=== PATIENT | female | born 1975 | race Caucasian/White ===

== ENCOUNTER 2017-07-25 10:13 | Emergency (ER) | payer MEDICARE | END 2017-07-25 13:30 | disposition home or self-care (01) | LOC: D.ER 10:13 | DX: F07.81 Postconcussional syndrome (principal); S40.021A Contusion of right upper arm, initial encounter; Y04.2XXA Assault by strike against or bumped into by another person, initial encounter; Y93.89 Activity, other specified; Y92.89 Other specified places as the place of occurrence of the external cause; M25.50 Pain in unspecified joint ==

== ENCOUNTER 2017-11-24 13:55 | Emergency (ER) | payer MEDICARE ==
[2017-11-24 15:48] LABS: BASOPHILS 0.3 % (0-2); EOSINOPHILS 0.4 % (0-7); HEMATOCRIT 44.3 % (36.0-48.0); HEMOGLOBIN 14.8 g/dL (12-16); IMMATURE GRANULOCYTES 0.3 % (0-5); LYMPHOCYTES 28.5 % (15-50); MCH 31.5 pg (26.0-34.0); MCHC 33.4 g/dL (31.0-37.0); MCV 94.3 fL (80.0-100.0); MEAN PLATELET VOLUME 9.8 fL (7.4-10.4); MONOCYTES 5.7 % (2-11); NEUTROPHILS 64.8 % (40-80); PLATELET COUNT 251 10x3/uL (130-400); RDW 13.6 % (11.5-14.5); WBC 11.6 10x3/uL (4.8-10.8)
[2017-11-24 16:12] LABS: ANION GAP 11.5 mmol/L (8-16); CALCIUM 9.6 mg/dL (8.5-10.1); CARBON DIOXIDE 30.6 mmol/L (21.0-32.0); CREATININE - SERUM 0.9 mg/dL (0.6-1.3); POTASSIUM - SERUM 4.1 mmol/L (3.5-5.1); T4 THYROXIN - FREE 0.7 ng/dL (0.76-1.46); THYROID STIMULATING HORMONE 38.75 uIU/mL (0.36-3.74)
== END 2017-11-24 17:03 | disposition home or self-care (01) ==
LOC: D.ER 13:55
PROVIDERS: Family Medicine
DX: L30.9 Dermatitis, unspecified (principal); E03.9 Hypothyroidism, unspecified

== ENCOUNTER 2017-12-01 12:24 | Emergency (ER) | payer MEDICARE | END 2017-12-01 14:00 | disposition home or self-care (01) | LOC: D.ER 12:24 | DX: R50.9 Fever, unspecified (principal); J11.1 Influenza due to unidentified influenza virus with other respiratory manifestations; J20.9 Acute bronchitis, unspecified; H66.93 Otitis media, unspecified, bilateral ==

== ENCOUNTER → 2018-11-20 14:21 | Outpatient (CLI) | payer MEDICARE | END | disposition home or self-care (01) | LOC: D.MRI 14:21 | DX: M25.562 Pain in left knee (principal) ==

== ENCOUNTER → 2018-12-11 08:25 | Outpatient (CLI) | payer MEDICARE | END | disposition home or self-care (01) | LOC: D.MRI 08:25 | DX: M54.5 Low back pain (principal) ==

== ENCOUNTER 2019-07-13 17:28 | Observation (INO) | payer MEDICARE, MEDICAID ==
[~2019-07-13] VITALS: Ht 162.6 cm; Wt 136.4 kg
--- NOTE | ~2019-07-13 | HEMODYNAMI ---
PATIENT:JESSY KU MEDICAL RECORD: [id number] : 73 LOCATION:[facility] D.2116 [facility]# [id number] ADMISSION DATE: 07/13/19 Generatedon:07/14/201912:35 Patient name: JESSY KU Patient #: [id number] SSN: [id number] : 1975 Date of study: 07/14/2019 Page: Of Hemodynamic Procedure Report Patient Data Patient Demographics Procedure consent was obtained First Name: JESSY Gender: Female Last Name: KINGS : 1975 [facility] Initial: E Age: 44 year(s) Patient #: [id number] Race: SSN: [id number] Additional ID: [id number] Contact details Address: [address] [place] [address] State: [place] City: [place] Zip code: [address] Past Medical History Allergies Allergen Reaction Date Comments Reported Other allergy 07/14/2019 PCN, ASA Admission Admission Data Admission Date: 07/13/2019 Admission Time: 19:45 Room #: D.2116 Insurance Payor: Medicare [facility] #: [id number] Height (in.): 63.78 BSA: 2.32 (m2) Height (cm.): 162 BMI: 51.82 (kg/m2) Weight (lbs.): 299.83 Weight (kg.): 136 Lab Results Lab Result Date: 07/14/2019 Lab Result Time: 0:00 Biochemistry Name Units Result Min Max BUN mg/dl 12 --(-*--)-- 7 18 Creatinine mg/dl 0.8 --(-*--)-- 0.6 1.3 eGFR ml/min 82.33964 *-(----)-- 90 120 NONAFRICAN CBC Name Units Result Min Max Hematocrit % 37.7 *-(----)-- 42 54 Hemoglobin g/dl 12.8 -*(----)-- 13.5 17.5 Procedure Procedure Types Cath Procedure Diagnostic Procedure [facility] w/Coronaries Procedure Description Procedure Date Procedure Date: 07/14/2019 Procedure Start Time: 12:24 Procedure End Time: 12:34 Procedure Staff Name Function Richard Ge MD Performing Physician Doris Nava RT Monitor Jessy Escobedo RT Scrub Andrea Gusman RT Scrub Nieves Mims RN Nurse Procedure Data Cath Procedure Fluoroscopy Diagnostic fluoroscopy Total fluoroscopy Time: 1.3 time: 1.3 min min Diagnostic fluoroscopy Total fluoroscopy dose: 370 dose: 370 mGy mGy Contrast Material Contrast Material Type Amount (ml) Isovue 300 44 Entry Location Entry Primary Successful Side Size Upsize Upsize Entry Closure Succes sful Closure Location (Fr) 1 (Fr) 2 (Fr) Remarks Device Remarks Femoral Right 5 Fr Exoseal artery Estimated blood loss: 5 ml Diagnostic catheters Device Type Used For End Catheter Placement MULTIPACK Pigtail 5 Fr Procedure catheter MULTIPACK JL 4.0 5Fr Procedure catheter MULTIPACK 3DRC 5Fr Procedure catheter Procedure Complications No complications Procedure Medications Medication Administration Route Dosage Oxygen etCO2 Nasal cannula 2 l/min Lidocaine 2% added to field 20 Heparin Flush Bag added to field 2 bags (1000units/500ml NS) 0.9% NaCl I.V. 100 ml/hr Versed I.V. 2 mg Fentanyl I.V. 100 mcg Versed I.V. 2 mg Fentanyl I.V. 100 mcg Hemodynamics Rest BSA: 2.32 (m2) HGB: 12.8 (g/dl) O2 Consumption: Estimated: 229.81 (ml/min) O2 Co nsumption indexed: Estimated:99.06 (ml/min/m) Heart Rate: 68 (bpm) Snapshots Pre Cath Intra NCS Post Cath Vital Signs Time Heart Resp SPO2 etCO2 NIBP (mmHg) Rhythm Pain Sedation Rate (ipm) (%) (mmHg) Status Level (bpm) 12:20:41 71 17 98 31.2 134/86(105) NSR 0 (11) 10(A) , No pain 12:25:20 68 4 96 35 71/59(67) NSR 0 (11) 10(A) , No pain 12:30:19 75 18 97 27.5 Measuring NSR 0 (11) 10(A) , No pain 12:33:58 72 12 96 33.5 129/82(92) NSR 0 (11) 10(A) , No pain Medications Time Medication Route Dose Verified Delivered Reason Notes Eff ectiveness by by 12:22:31 Oxygen etCO2 2 Richard Buffie used for Nasal l/min Joo Mims RN procedure cannula 12:22:37 Lidocaine 2% added 20ml Richard Richard for local to vial Joo Ge MD anesthetic field 12:22:43 Heparin Flush added 2 Richard Richard used for Bag to bags Joo Ge MD procedure (1000units/500ml field NS) 12:22:51 0.9% NaCl I.V. 100 Richard Buffie Per ml/hr Joo Mims RN physician 12:24:31 Versed I.V. 2 mg Richard Buffie for Joo Mims RN sedation 12:24:39 Fentanyl I.V. 100 Richard Buffie for mcg Joo Mims RN sedation 12:28:05 Versed I.V. 2 mg Richard Buffie for Joo Mims RN sedation 12:28:08 Fentanyl I.V. 100 Richard Buffie for mcg Joo Mims RN sedation Procedure Log Time Note 11:44:40 Signed procedure consent form obtained from patient. 11:44:43 Procedure Status Urgent Heart Cath (IP). 11:44:45 Time tracking: Regular hours (M-F 7:00 - 5:00) 11:44:50 Plan of Care:Hemodynamics will remain stable., Cardiac rhythm will remain stable., Comfort level will be maintained., Respiratory function will remain adequate., Patient/ family verbilizes understanding of procedure., Procedure tolerated without complication., Recovers from procedure without complications.. 11:45:14 Is patient on blood thinner?Yes 11:45:16 ACC The patient was administered the following blood thiners within the last 24 hours: ACCPlavix 11:45:29 GIVEN 600MG PLAVIX YESTERDAY 11:47:33 Lab Result : BUN 12 mg/dl 11:47:33 Lab Result : Creatinine 0.8 mg/dl 11:47:33 Lab Result : eGFR NONAFRICAN 82.31874 ml/min 11:47:33 Lab Result : Hemoglobin 12.8 g/dl 11:47:33 Lab Result : Hematocrit 37.7 % 11:49:18 Patient Weight : 299.83 lbs 11:49:23 Patient Height : 63.78 inches 11:49:57 Insurance Payor : Medicare 11:50:08 Andrea Gusman RT(R) sent for patient. Start room use. 11:52:32 Patient allergic to Other allergyPCN, ASA 12:10:06 Patient received from Med II to CCL 1 Alert and oriented. Tansferred to table in Supine position. 12:10:07 Warm blankets applied, and mj hugger turned on for patient comfort. 12:10:08 Correct patient and procedure confirmed by team. 12:10:08 ECG and BP/O2 sat monitors applied to patient. 12:13:03 H&P Date Dictated: 07/14/2019 Within 30 days and on chart., H&P Addendum completed by physician on day of procedure. (MUST COMPLETE FOR ALL OUTPATIENTS). 12:13:04 Pre-procedure instructions explained to patient. 12:13:05 Pre-op teaching completed and patient verbalized understanding. 12:13:22 Patient diabetic? No. 12:13:24 Previous problem with sedation/anesthesia? No ? 12:13:25 Snore? Yes 12:13:26 Sleep apnea? Yes 12:13:27 Deviated septum? No 12:13:28 Opens mouth fully? Yes 12:13:29 Sticks out tongue? Yes 12:13:31 Airway obstruction? No ? 12:13:37 Dentures? Yes OUT 12:18:55 Vital chart was started 12:18:56 Baseline sample Acquired. 12:19:00 Rhythm: sinus rhythm 12:19:01 Full Disclosure recording started 12:19:54 Lab results completed and on chart. 12:19:58 Right groin area was prepped with chlora-prep and draped in sterile fashion 12:19:59 Alarms reviewed by R. N. 12:19:59 Sharps counted by scrub and verified by R.N. 12:20:04 Pre procedure: right dorsailis pedis pulse 1+ Palpable, but thready & weak; easily obliterated 12:20:11 IV patent on arrival in left hand with 0.9% NaCl at KVO. 12:20:14 Use device set Femoral Dx 12:20:15 ACIST Syringe (53706) opened to sterile field. 12:20:16 Bag Decanter (2002S) opened to sterile field. 12:20:17 ACIST Hand Control (78495) opened to sterile field. 12:20:17 ACIST Manifold (21806) opened to sterile field. 12:20:18 Tegaderm 4 x 4 (1626W) opened to sterile field. 12:20:20 Medline Cath Pack ([id number]) opened to sterile field. 12:20:20 DIAGNOSTIC Multipack 5Fr catheter set (NP7472) opened to sterile field. 12:20:21 SHEATH 5FR Melrose (EKK466) opened to sterile field. 12:20:22 EMERALD Guide Wire (879-228) opened to sterile field. 12:22:31 Oxygen 2 l/min etCO2 Nasal cannula was administered by Nieves Mims RN; used for procedure; 12:22:37 Lidocaine 2% 20ml vial added to field was administered by Richard Ge MD; for local anesthetic; 12:22:43 Heparin Flush Bag (1000units/500ml NS) 2 bags added to field was administered by Richard Ge MD; used for procedure; 12:22:51 0.9% NaCl 100 ml/hr I.V. was administered by Nieves Mims RN; Per physician; 12:23:03 --------ALL STOP TIME OUT------ 12:23:03 Final Timeout: patient, procedure, and site verified with staff and physician. All members of the team are in agreement. 12:23:05 Right groin site verified by team. 12:23:08 Fire Safety Assessment: A--An alcohol-based skin anteseptic being used preoperatively., C--Open oxygen or nitrous oxide is being used., D--An ESU, laser, or fiber-optic light is being used. 12:23:10 Physical assessment completed. ASA score P 2 - A patient with mild systemic disease as per Richard Ge MD. 12:23:15 2) 60-89 Mildly reduced kidney function, and other findings (as for stage 1) point to kidney disease. 12:23:18 Maximum allowable contrast dose (3.7 X eGFR X 0.75)215 ml. 12:23:21 Sedation plan: IV Moderate Sedation Medication:Versed, Fentanyl 12:24:31 Versed 2 mg I.V. was administered by Nieves Mims RN; for sedation; 12:24:39 Fentanyl 100 mcg I.V. was administered by Nieves Mims RN; for sedation; 12::40 Procedure started. 12::47 Local anesthetic to right femoral artery with Lidocaine 2% by Richard Ge MD.INITIAL ACCESS ONLY 12::55 A 5 Fr sheath was inserted into the Right Femoral artery 12:: Zero performed for pressure channel P1 12:: A MULTIPACK Pigtail 5 Fr catheter was advanced over the wire and used for Procedure. 12::37 LV gram done using GUERRERO 12:: Injector settings: Ml/sec: 10, Volume: 20, 12::57 EF : 40 % 12::02 Catheter removed. 12::15 A MULTIPACK JL 4.0 5Fr catheter was advanced over the wire and used for Procedure. 12::05 Versed 2 mg I.V. was administered by Nieves Mims RN; for sedation; 12::08 Fentanyl 100 mcg I.V. was administered by Nieves Mims RN; for sedation; 12::18 LCA angiography performed. 12:: Catheter removed. 12::25 A MULTIPACK 3DRC 5Fr catheter was advanced over the wire and used for Procedure. 12:29:24 RCA angiography performed. 12:: Catheter removed. 12:30:11 EXOSEAL 5Fr (EX500) opened to sterile field. 12:30:22 Sheath removed intact; hemostasis achieved with Exoseal to the Right Femoral artery. 12:30:23 Procedure ended.(Physican Out) 12::44 Fluoroscopy time 01.30 minutes. 12::49 Fluoroscopy dose: 370 mGy 12::49 Flurop Dose total: 370 12::57 Dose Area Product 75429 mGy/cm. 12:31:00 Contrast amount:Isovue 300 44ml. 12:31:04 Maximum allowable dose exceeded? No. 12::05 Sharps counted by scrub and verified by R.N. ::08 Post-op/insertion site Right Femoral artery dressed using a 4 x 4 and Tegaderm. 12:31:10 Post-procedure physical assessment completed. ASA score P 2 - A patient with mild systemic disease as per Richard Ge MD. 12:31:13 Post procedure rhythm: sinus rhythm ::18 Estimated blood loss: 5 ml 12:31:20 Post procedure instruction explained to patient.Patient verbalizes understanding. 12:31:20 Patient needs reinforcement of post procedure teaching. 12:31:46 Procedure and supply charges have been captured, reviewed, submitted and are correct. 12:31:51 Procedure Complication : No complications 12:34:30 Vital chart was stopped 12:34:30 See physician's report for complete and final results. 12:34:33 Report given to [facility]. 12:34:36 Patient transfered to [facility] with Bed. 12:34:37 Procedure ended. 12:34:37 Full Disclosure recording stopped 12:34:41 End room use (Document Last) Device Usage Item Name Manufacture Quantity Catalog Hospital Part Current Minimal L ot# / Number Charge Number Stock Stock Serial# Code ACIST Acist 1 30496 159156 904525 424136 20 Syringe Medical (95915) Systems Inc Bag Microtek 1 2001S 772272 20362 872175 5 Decanter Medical Inc. () ACIST Hand Acist 1 95093 178221 564023 157674 5 Control Medical (18933) Systems Inc ACIST Acist 1 67890 882468 768865 097296 5 Manifold Medical (11652) Systems Inc Tegaderm 4 3M 1 1626W 006070 229741 069364 5 x 4 (1626W) Medline Medline 1 [id number] 025714 90618 368317 5 Cath Pack ([id number]) DIAGNOSTIC Cardinal 1 XH8471 442717 05822 511014 30 Multipack Health 5Fr catheter set (QQ9165) SHEATH 5FR Terumo 1 IHB862 349758 829496 603464 5 Melrose (QWX839) EMERALD Cardinal 1 502-455 745718 320254 699586 5 Guide Wire Health (502455) MULTIPACK Cardinal 1 060654 5 Pigtail 5 Health Fr catheter MULTIPACK Cardinal 1 862881 5 JL 4.0 5Fr Health catheter MULTIPACK Cardinal 1 630319 5 3DRC 5Fr Health catheter EXOSEAL 5Fr Cardinal 1 EX500 365542 686295 209745 10 (EX500) Health Signature Audit [place] Stage Time Signature Unsigned Intra-Procedure 07/14/2019 Doris Nava 12:35:15 PM RT(R) Signatures Performing Physician : Signature : Richard Tauth MD Date : Time : Monitor : Doris Nava Signature : RT Date : Time : Nurse : Buffie Mims RN Signature : Date : Time : [address] [place] [address]
[2019-07-13 18:07] LABS: APPEARANCE CLEAR (CLEAR); BILIRUBIN NEGATIVE (NEGATIVE); COLOR YELLOW (YELLOW); GLUCOSE NEGATIVE (NEGATIVE); KETONE NEGATIVE (NEGATIVE); NITRITE NEGATIVE (NEGATIVE); PROTEIN NEGATIVE (NEGATIVE); UROBILINOGEN NORMAL (NORMAL)
[2019-07-13 18:23] LABS: BASOPHILS 0.4 % (0-2); EOSINOPHILS 1.8 % (0-7); HEMATOCRIT 36.1 % (36.0-48.0); HEMOGLOBIN 12.4 g/dL (12-16); IMMATURE GRANULOCYTES 0.3 % (0-5); LYMPHOCYTES 33.3 % (15-50); MCH 29.8 pg (26.0-34.0); MCHC 34.3 g/dL (31.0-37.0); MCV 86.8 fL (80.0-100.0); MEAN PLATELET VOLUME 8.6 fL (7.4-10.4); NEUTROPHILS 56.2 % (40-80); PLATELET COUNT 260 10x3/uL (130-400); RBC 4.16 10x6/uL (4.00-5.40); RDW 13.4 % (11.5-14.5); WBC 11.1 10x3/uL (4.8-10.8)
--- NOTE | 2019-07-13 18:35 | NUR ---
UP IN ROOM TALKING ON PHONE.
[2019-07-13 18:42] LABS: ALBUMIN 3.1 g/dL (3.4-5.0); ALKALINE PHOSPHATASE 87 U/L (46-116); ALT (SGPT) 28 U/L (10-68); BILIRUBIN - TOTAL 0.22 mg/dL (0.2-1.3); CALC OSMOLALITY 265 mosm/kg (275-300); CALCIUM 8.9 mg/dL (8.5-10.1); CARBON DIOXIDE 27.3 mmol/L (21.0-32.0); CHLORIDE - SERUM 100 mmol/L (98-107); CREATININE - SERUM 0.8 mg/dL (0.6-1.3); GLUCOSE 117 mg/dL (74-106); POTASSIUM - SERUM 3.9 mmol/L (3.5-5.1); PROTEIN - SERUM 6.8 g/dL (6.4-8.2); SODIUM 133 mmol/L (136-145); UREA NITROGEN 9 mg/dL (7-18); eGFR NON AFRICAN AMERICAN 82 mL/min (90-120)
[2019-07-13 18:57] LABS: CKMB 1.5 U/L (0.0-3.6); CREATINE KINASE 89 UL (21-215); PRO BNP 805 pg/mL (0-125)
--- NOTE | 2019-07-13 19:08 | NUR ---
PT AMBULATED TO RESTROOM WITH A STEADY GAIT. NO S/S OF ACUTE DISTRESS NOTED AT THIS TIME.
[2019-07-13 19:11] LABS: TROPONIN-I 0.626 ng/mL (0.000-0.060)
--- NOTE | 2019-07-13 19:32 | NUR ---
RN ADMINISTERED 1 NTG AT THIS TIME. PAIN RATED 9/10.
--- NOTE | 2019-07-13 19:45 | NUR ---
PT REPORTS DECREASE IN PAIN TO 7/10.
--- NOTE | 2019-07-13 19:52 | NUR ---
RN ADMINISTERED 2ND NTG AT THIS TIME.
--- NOTE | 2019-07-13 20:00 | NUR ---
PT FAMILY AT BEDSIDE.
--- NOTE | 2019-07-13 20:42 | NUR ---
PT AMBULATED TO RESTROOM WITH A STEADY GAIT.
--- NOTE | 2019-07-13 21:30 | NUR ---
ADMIT TO ROOM 2115 FROM ER VIA WHEELCHAIR. ALERT/ORIENTED AND AMBULATORY. ADMISSION ASSESSMENT AND HISTORY COMPLETED. HOME MEDS REVIEWED. PT UNSURE WHAT SHE TAKES, BUT AGREES TO WHAT MEDS ARE LISTED TO HAVING BEEN RECENTLY ORDERED AT [facility]. IVF NS @ 75ML/HR INFUSING TO LEFT HAND. SR PER TELEMETRY. PT TEACHING ON NPO AFTER MIDNIGHT UNTIL SEEN BY VEHICLE ASSEMBLER IN AM. PT DOES NOT WISH TO USE ANY TYPE OF PAIN MEDS DUE TO BEING A RECOVERING ADDICT AND CURRENTLY INPATIENT AT [facility]. PLAN OF CARE INITIATED. SANDWICH TRAY AND DRINK DELIVERED.
[2019-07-13 22:17] LABS: UDS - AMPHET NEGATIVE QUAL (NEGATIVE); UDS - BARB NEGATIVE QUAL (NEGATIVE); UDS - BENZO NEGATIVE QUAL (NEGATIVE); UDS - COCAINE NEGATIVE QUAL (NEGATIVE); UDS - OPIATE NEGATIVE QUAL (NEGATIVE); UDS - PCP NEGATIVE QUAL (NEGATIVE); UDS - THC NEGATIVE QUAL (NEGATIVE)
[2019-07-13] MEDS ORDERED: PROPRANOLOL HCL20 MG PO (22:51)
[2019-07-13] MEDS ORDERED: TRILEPTAL300 MG PO (22:55)
[2019-07-13] MEDS ORDERED: ZOLOFT50 MG PO (22:56)
[2019-07-13] MEDS ORDERED: REMERON30 MG PO (22:56)
[2019-07-13] MEDS ORDERED: COZAAR50 MG PO (22:57)
[2019-07-13] MEDS ORDERED: LEVOTHYROXINE150 MCG PO (22:57)
[2019-07-13 23:21] VITALS: BP 116/71; BMI 51.6
[2019-07-14] VITALS: BP 116/71
--- NOTE | 2019-07-14 00:22 | NUR ---
DUE TO PT'S REFERENCE TO SUICIDAL IDEATION IN THE PAST, SHE IS NOW BEING ASSESSED BY PSYCH NURSE. CPOC.
--- NOTE | 2019-07-14 00:29 | NUR ---
PATIENT ADMITTED TO ROOM 2116 FOR CHEST PAIN. PATIENT HAS A HISTORY OF DEPRESSION WHICH SHE IS BEING TREATED FOR. SHE IS NOT CURRENTLY SUICIDAL AND HAS NOT BEEN SUICIDAL IN THE LAST 3 MONTHS. SUICIDE PREVENTION RESOURCE SHEET GIVEN TO PATIENT.
[2019-07-14 04:00] VITALS: BP 97/49
--- NOTE | 2019-07-14 04:05 | NUR ---
PT RESTING WITH NO DISTRESS. SR PER TELEMETRY. NPO UNTIL SEEN BY SECRETARY TO BOARD OF COMMISSIONERS.
[2019-07-14 05:22] LABS: BASOPHILS 0.3 % (0-2); EOSINOPHILS 1.5 % (0-7); HEMATOCRIT 37.7 % (36.0-48.0); HEMOGLOBIN 12.8 g/dL (12-16); IMMATURE GRANULOCYTES 0.3 % (0-5); LYMPHOCYTES 32.8 % (15-50); MCH 29.6 pg (26.0-34.0); MCV 87.1 fL (80.0-100.0); MEAN PLATELET VOLUME 8.7 fL (7.4-10.4); MONOCYTES 7.5 % (2-11); NEUTROPHILS 57.6 % (40-80); PLATELET COUNT 252 10x3/uL (130-400); RBC 4.33 10x6/uL (4.00-5.40); RDW 13.5 % (11.5-14.5); WBC 9.7 10x3/uL (4.8-10.8)
[2019-07-14 06:06] LABS: CALCIUM 8.8 mg/dL (8.5-10.1); CARBON DIOXIDE 26.7 mmol/L (21.0-32.0); CHLORIDE - SERUM 103 mmol/L (98-107); CREATININE - SERUM 0.8 mg/dL (0.6-1.3); GLUCOSE 98 mg/dL (74-106); POTASSIUM - SERUM 4.1 mmol/L (3.5-5.1); SODIUM 136 mmol/L (136-145); eGFR NON AFRICAN AMERICAN 82 mL/min (90-120)
[2019-07-14 06:10] LABS: CALC OSMOLALITY 271 mosm/kg (275-300); TROPONIN-I 0.604 ng/mL (0.000-0.060); UREA NITROGEN 12 mg/dL (7-18)
[2019-07-14 08:21] VITALS: Ht 162.6 cm; Wt 136.4 kg
[2019-07-14 08:33] VITALS: BP 100/47
--- NOTE | 2019-07-14 09:52 | NUR ---
CONSENTS SIGNED FOR [facility]. WILL CONT. PLAN OF CARE.
[2019-07-14 11:56] VITALS: BP 114/72
--- NOTE | 2019-07-14 12:02 | NUR ---
PRE-OPS GIVEN. TO SHIFT COORDINATOR BY BED.
--- NOTE | 2019-07-14 12:55 | NUR ---
BACK FROM ARCHITECTURE DEPARTMENT CHAIR. VS WNL. RIGHT GROIN STABLE WITHOUT BLEEDING OR HEMATOMA NOTED. WILL MONITOR.
--- NOTE | 2019-07-14 14:31 | NUR ---
BED REST UP. GROIN STABLE, IV AND TELEMTRY DCD. DC PLANS GIVEN. REPORT CALLED TO NURSE AT [facility].
--- NOTE | 2019-07-14 14:46 | NUR ---
ESCORTED TO CAR BY W/C.
--- NOTE | 2019-07-14 17:20 | MORECARE ---
CASE MANAGEMENT DISCHARGE SUMMARY PATIENT: JESSY KU UNIT: [id number] ADM DATE: 07/13/19 AGE: 44 : [birth year] SEX: F ROOM/BED: D.8846 AUTHOR: RAYMOND ENCINAS PHYSICIAN: REFERRING PHYSICIAN: MARIA DEL CARMEN BEACH MD DATE OF SERVICE: 07/14/19 Discharge Plan Patient Name: JESSY KU Facility: [facility]:[place] : 1975 Planned Disposition: Other Type of Facility Anticipated Discharge Date: 07/14/19 Discharge Date: 07/14/2019 Expected LOS: 1 Initial Reviewer: [email or web address] Initial Review Date: 07/14/2019 Generated: 07/14/19 6:20 pm DCPIA - Discharge Planning Initial Assessment Updated by [email or web address]: Alex Tran on 07/14/19 5:17 pm * Is the patient Alert and Oriented? Yes * How many steps to enter\exit or inside your home? 20 * PCP DR. LUNDY * Pharmacy [facility] ([place] [facility]) * Preadmission Environment Other * Other Environment DRUG / ALCOHOL TREATMENT FACILITY - INVOLUNTARY COMMITTMENT * Facility Name [facility]. * ADLs Independent * Equipment None * Other Equipment [facility] - PREFERRED EQUIPMENT PROVIDER * List name and contact numbers for known caregivers / representatives who currently or will assist patient after discharge: ITALO RODRIGUEZ, SIGNIFICANT OTHER, * Verbal permission to speak to the caregivers and representatives has been obtained from the patient. Yes * Community resources currently utilized None * Please name any agencies selected above. NONE * Additional services required to return to the preadmission environment? No * Can the patient safely return to the preadmission environment? Yes * Has this patient been hospitalized within the prior 30 days at any hospital? No Patient Name: JESSY KU Page [id number] at 1720 All edits/amendments must be made on the electronic document DICTATION DATE: 07/14/19 1720 INSTANTIZER OPERATOR: WESLY 07/14/19 1720 RPT#: [id number] DC DATE:07/14/19 STATUS: DIS IN [facility] [address] [place] [address] END OF REPORT
--- NOTE | 2019-07-14 17:28 | MORECARE ---
CASE MANAGEMENT DISCHARGE SUMMARY PATIENT: JESSY KU UNIT: [id number] ADM DATE: 07/13/19 AGE: 44 : [birth year] SEX: F ROOM/BED: D.7086 AUTHOR: RAYMOND ENCINAS PHYSICIAN: REFERRING PHYSICIAN: MARIA DEL CARMEN BEACH MD DATE OF SERVICE: 07/14/19 Discharge Plan Patient Name: JESSY KU Facility: [facility]:[place] : 1975 Planned Disposition: Other Type of Facility Anticipated Discharge Date: 07/14/19 Discharge Date: 07/14/2019 Expected LOS: 1 Initial Reviewer: [email or web address] Initial Review Date: 07/14/2019 Generated: 07/14/19 6:28 pm Comments DCP- Discharge Planning Updated by [email or web address]: Alex Tran on 07/14/19 4:[address] Patient Name: JESSY KU Admission Status: ER Accout number: [id number] Admission Date: 07-13-2019 : 1975 Admission Diagnosis: Attending: LEAH BEACH Current LOS: 1 Anticipated DC Date: 07-14-2019 Planned Disposition: Other Type of Facility Primary Insurance: [facility] MEDICARE SOLUTIONS PLANNED EXTERNAL PROVIDER: [facility]. INVOLUNTARY COMMITTMENT FOR DRUG / ALCOHOL TREATMENT Discharge Planning Comments: CM MET WITH PT AND HER SIGNFICANT OTHER IN ROOM TO DISCUSS DISCHARGE PLANNING AND NEEDS. JESSY KU provided verbal consent to discuss current and ongoing needs with/in the presence of: ITALO RODRIGUEZ. PT REPORTS LIVING AT HOME INDEPENDENTLY WITH HER SIGNIFICANT OTHER WHEN NOT IN [facility]. PT REPORTS HER FAMILY FILED A PETITION FOR INVOLUNTARY COMMITTMENT AND PT HAS TO RETURN TO [facility] TODAY AND HAS ANOTHER COURT HEARING NEXT WEEK. PT HAS NO MEDICAL EQUIPMENT AND NO OUTSIDE SERVICES ASSISTING IN THE HOME. CM DISCUSSED AVAILABILITY OF HOME HEALTH, REHAB SERVICES AND MEDICAL EQUIPMENT. PT DENIES DISCHARGE NEEDS, REPORTS HER SIGNIFICANT OTHER WILL PICK HER UP FOR DISCHARGE BACK TO [facility]. CM CALLED [facility], , SPOKE TO WHO CONFIRMED THAT PT CAN TRANSPORT WITH HER BOYFRIEND FOR RETURN TO TREATMENT. CM INFORMED THAT PT DID RECEIVE VERSED AND FENTENYL IN THE HOSPITAL DURING TREATMENT. [facility] DOES NOT NEED NURSE REPORT OR FAX OF MEDICAL RECORDS, PT NEEDS TO BRING DISCHARGE INFORMATION WITH HER. PT AND BEDSIDE NURSE NOTIFIED. Medical Physicist: Alex Tran DCPIA - Discharge Planning Initial Assessment Updated by [email or web address]: Alex Tran on 07/14/19 5:17 pm * Is the patient Alert and Oriented? Yes * How many steps to enter\exit or inside your home? 20 * PCP DR. LUNDY * Pharmacy [facility] ([facility]) * Preadmission Environment Other * Other Environment DRUG / ALCOHOL TREATMENT FACILITY - INVOLUNTARY COMMITTMENT * Facility Name [facility]. * ADLs Independent * Equipment None * Other Equipment [facility] - PREFERRED EQUIPMENT PROVIDER * List name and contact numbers for known caregivers / representatives who currently or will assist patient after discharge: ITALO RODRIGUEZ, SIGNIFICANT OTHER, * Verbal permission to speak to the caregivers and representatives has been obtained from the patient. Yes * Community resources currently utilized None * Please name any agencies selected above. NONE * Additional services required to return to the preadmission environment? No * Can the patient safely return to the preadmission environment? Yes * Has this patient been hospitalized within the prior 30 days at any hospital? No Last DP export: 07/14/19 4:20 p Patient Name: JESSY KU Page [id number] at 1728 All edits/amendments must be made on the electronic document DICTATION DATE: 07/14/191727 SWITCHBOARD CLERK: WESLY 07/14/191727 RPT#: [id number] DC DATE:07/14/19 STATUS: DIS IN [facility] [address] [place] [address] END OF REPORT
--- NOTE | 2019-07-15 11:10 | DS ---
PATIENT:JESSY KU :73 MEDICAL RECORD: [id number] DISCHARGE SUMMARY ADMISSION DATE: 07/13/19 DISCHARGE DATE: 07/14/19 DISCHARGE DIAGNOSES: 1. Chest pain. 2. Elevated troponin. 3. Normal cardiac catheterization. 4. Hypertension. 5. Hyperlipidemia. HISTORY OF PRESENT ILLNESS: Mrs. Ku presents with chest pain. Her troponin is mildly elevated; however, cardiac catheterization was normal with no coronary artery disease. Discharged home. Follow up with her primary care physician. TRANSINT:[id number] Voice Confirmation ID: [id number] DOCUMENT ID: [id number] MARIA DEL CARMEN BEACH MD at 1110 CC: [id number] DICTATION DATE: 07/14/19 1237 DITCH INSPECTOR: 07/15/19 0024 DIS IN 07/14/19 [facility] [address] [place] [address]
--- NOTE | 2019-07-15 11:10 | HP ---
PATIENT: JESSY KU MEDICAL RECORD: [id number] ACCOUNT: [id number] LOCATION:[address] : [birth year] ADMISSION DATE: 07/13/19 PCP: SUNI LUNDY MD HISTORY AND PHYSICAL EXAMINATION DIAGNOSES: 1. Non-Q-wave myocardial infarction. 2. Coronary artery disease. 3. Shortness of breath, dyspnea on exertion. 4. Hypertension. 5. Hyperlipidemia. 6. Hypothyroidism, on replacement. HISTORY OF PRESENT ILLNESS: Mrs. Ku presents with 24 hours of increasing chest discomfort. She has a history of a myocardial infarction in the past. She was pain free until yesterday when she began having severe chest discomfort. Her troponin is positive for non-Q-wave myocardial infarction. She continues to have episodes of chest discomfort this morning. PHYSICAL EXAMINATION: CONSTITUTIONAL/GENERAL APPEARANCE: Well nourished, well developed, appears stated age. EYES: Lids and conjunctivae noninjected. No discharge. No pallor. ENT: Lips within normal limit. No cyanosis. No pallor. NECK: Carotid arteries, bilateral normal upstroke. No bruits. No thrills. No jugular venous pressure or distention. CERVICAL LYMPH NODES: Nontender. Nonenlarged. THYROID: Not enlarged. No nodules. CARDIOVASCULAR: Precordial exam, nondisplaced. No heaves or pericardial thrills. Rate and rhythm, regular. Heart sounds, normal S1, normal S2. No S3, no gallop, no rub. Systolic murmur, not heard. Diastolic murmur, not heard. RESPIRATORY: Respiratory effort, unlabored. Normal curvature. No thoracic deformity. No chest wall tenderness. Percussion, resonant. Auscultation, clear. No wheezes, no rales, no rhonchi. ABDOMEN: Soft, nondistended, nontender. No abdominal pain, no vomiting and normal appetite. MUSCULOSKELETAL: No joint tenderness, normal gait, normal tone. SKIN: Warm and dry. OVERALL IMPRESSION: Non-Q-wave myocardial infarction with continued chest discomfort, dyspnea on exertion, shortness of breath in a patient with a past history of coronary artery disease with hypertension, hyperlipidemia. No doubt she has hemodynamically significant coronary artery disease. We will proceed with coronary angiography. Further care depends upon findings of the angiography. TRANSINT:[id number] Voice Confirmation ID: [id number] DOCUMENT ID: [id number] HISTORY AND PHYSICAL [id number] JESSY KU JEFFREY MD at 1110 CC: [id number] DICTATION DATE: 07/14/19821 SECOND HAND: 07/14/19 08 DIS IN 07/14/19 [facility] [address] [place] [address]
--- NOTE | 2019-07-15 11:10 | EC ---
PATIENT:JESSY KU DATE OF SERVICE: 07/13/19 SEX: F MEDICAL RECORD: [id number] DATE OF : [birth year] LOCATION:D. D.211 AGE OF PATIENT: 44 ADMISSION DATE: 07/13/19 REFERRING PHYSICIAN: INTERPRETING PHYSICIAN: MARIA DEL CARMEN GE MD ECHOCARDIOGRAM REPORT ECHO CHARGES 4 ECHO COMPLETE Date: 07/14/19 CLINICAL DIAGNOSIS: NH ECHOCARDIOGRAPHIC MEASUREMENTS (adult normal given) AC root (d.<3.7cm) 3.2 cm LV Septum d (<1.2 cm> 1.1 cm Valve Excursion 1.9 cm LV Septum (systole) 1.4 cm Left Atria (s.<4.0cm> 4.0 cm LVPW d(<1.2cm) 1.1 cm RV (d.<2.3cm) 2.5 cm LVPW (sytole) 1.3 cm LV diastole(<5.6CM) 7.2 cm MV E-F(>70mm/sec) cm LV systole 5.9 cm LVOT Diameter 1.9 cm MV exc.(>10mm) cm Est.ejection fraction (50-75%) % DOPPLER: LVIT cm/sec A 46.0 cm/sec E 103 cm/sec LA cm/sec RVSP 25.0 mmHg LVOT 105 cm/sec AOP1/2T m/s Asc. Ao 121 cm/sec RVOT 46.0 cm/sec RA cm/sec PA 100 cm/sec AV Gradient Peak 5.8 mmHg AV Mean 2.6 mmHg AV Area 3.0 cm MV Gradient Peak 4.2 mmHg MV Mean 1.3 mmHg MV Area cm COMMENTS: Operator Automated Process: Emmie ANAYAOE Single Needle Operator: 1 Dr. Ge TAPE# PACS Pericardial Effusion N DATE OF SERVICE: 07/14/2019 PROCEDURE: Echocardiogram. FINDINGS: 1. Left ventricular chamber size is dilated. Left ventricular systolic function is mildly reduced at 40%. 2. Left atrium is with upper limits of normal at 4.0 cm. Right atrium and right ventricular chamber sizes are within normal limits. 3. Valvular structures have normal structure and motion. ECHOCARDIOGRAM REPORT [id number] JESSY KU 4. Doppler interrogation reveals mild mitral regurgitation, no other valvular insufficiency or stenosis. Pulmonary systolic pressure is estimated at 25 mmHg. 5. No evidence of pericardial effusion or left ventricular thrombus. TRANSINT:[id number] Voice Confirmation ID: [id number] DOCUMENT ID: [id number] MARIA DEL CARMEN GE MD at 1110 CC: [id number] DICTATION DATE: 07/14/19 1139 PLASTERING CONTRACTOR: 07/14/19 1152 DIS IN 07/14/19 [place] [id number] [place] [id number]
--- NOTE | 2019-07-15 11:10 | OP ---
PATIENT NAME: JESSY KU MEDICAL RECORD: [id number] :73 LOCATION:D.M2 D.2116 ADMISSION DATE:07/13/19 SURGEON: MARIA DEL CARMEN BEACH MD DATE OF OPERATION: 07/14/2019 PROCEDURES: 1. Left heart catheterization. 2. Selective coronary angiography. 3. Left ventriculogram. INDICATION: Chest pain, elevated troponin. PROCEDURE IN DETAIL: After informed consent was obtained and after a detailed description of risks, benefits as well as alternative therapies, the patient elected to proceed with angiogram and heart catheterization. The right femoral area was prepped and draped in normal sterile fashion. Right femoral artery was cannulated via modified Seldinger technique with placement of 5-Citizen Of [place] sheath. All catheters exchanged through this sheath. FINDINGS: Left ventriculogram was performed in standard 30 degree GUERRERO view reveals ejection fraction in the lower limits of normal up to 45% to 50%. SELECTIVE CORONARY ANGIOGRAPHY: Left main, left anterior descending, left circumflex, right coronary artery are all smooth-walled vessels with no angiographic evidence of coronary artery disease. OVERALL IMPRESSION: 1. No angiographic evidence of coronary artery disease. 2. Normal left heart pressures. 3. Preserved left heart function. Chest pain is noncardiac in etiology. Troponin is false positive, no other cardiac workup or treatment is necessary. TRANSINT:[id number] Voice Confirmation ID: [id number] DOCUMENT ID: [id number] MARIA DEL CARMEN BEACH MD at 1110 CC: [id number] DICTATION DATE: 07/14/19 1239 REDUCER: 07/14/19 1311 DIS IN 07/14/19 [place] [address]
== END 2019-07-14 14:47 | disposition home or self-care (01) ==
LOC: D.ER 17:28 → D.M2 19:45 → OBSVTIME 21:01 → D.M2 07-14 14:47
PROVIDERS: Family Medicine; ADMIT Internal Medicine Interventional Cardiology; ATTEND Internal Medicine Interventional Cardiology
PROC: B2151ZZ Fluoroscopy of Left Heart using Low Osmolar Contrast (ICD-10-PCS; 2019-07-14)
PROC: 4A023N7 Measurement of Cardiac Sampling and Pressure, Left Heart, Percutaneous Approach (ICD-10-PCS; 2019-07-14)
PROC: B2111ZZ Fluoroscopy of Multiple Coronary Arteries using Low Osmolar Contrast (ICD-10-PCS; principal; 2019-07-14 11:50)
DX: R07.89 Other chest pain (principal); I10 Essential (primary) hypertension; E78.5 Hyperlipidemia, unspecified; E03.9 Hypothyroidism, unspecified; R79.89 Other specified abnormal findings of blood chemistry

== ENCOUNTER 2020-02-17 15:59 | Observation (INO) | payer MEDICARE, MEDICAID ==
[~2020-02-17] VITALS: Ht 162.6 cm; Wt 144.5 kg
[~2020-02-17 15:59] MED LIST: COZAAR50 MG PO; LEVOTHYROXINE150 MCG PO; PROPRANOLOL HCL20 MG PO; REMERON30 MG PO; TRILEPTAL300 MG PO; ZOLOFT50 MG PO
[2020-02-17 16:19] LABS: BASOPHILS 0.4 % (0-2); EOSINOPHILS 2.1 % (0-7); HEMOGLOBIN 13.4 g/dL (12-16); IMMATURE GRANULOCYTES 0.2 % (0-5); LYMPHOCYTES 29.4 % (15-50); MCH 30.6 pg (26.0-34.0); MCHC 31.9 g/dL (31.0-37.0); MCV 95.9 fL (80.0-100.0); MEAN PLATELET VOLUME 8.9 fL (7.4-10.4); MONOCYTES 7.2 % (2-11); NEUTROPHILS 60.7 % (40-80); PLATELET COUNT 266 10x3/uL (130-400); RBC 4.38 10x6/uL (4.00-5.40); RDW 13.6 % (11.5-14.5); WBC 9.6 10x3/uL (4.8-10.8)
[2020-02-17 16:43] LABS: ANION GAP 16.4 mmol/L (8-16); CARBON DIOXIDE 22.1 mmol/L (21.0-32.0); POTASSIUM - SERUM 3.5 mmol/L (3.5-5.1)
[2020-02-17 16:43] LABS: UDS - AMPHET NEGATIVE QUAL (NEGATIVE); UDS - BARB NEGATIVE QUAL (NEGATIVE); UDS - BENZO NEGATIVE QUAL (NEGATIVE); UDS - COCAINE NEGATIVE QUAL (NEGATIVE); UDS - OPIATE NEGATIVE QUAL (NEGATIVE); UDS - PCP NEGATIVE QUAL (NEGATIVE); UDS - THC NEGATIVE QUAL (NEGATIVE)
[2020-02-17 16:48] LABS: ALBUMIN 3.9 g/dL (3.4-5.0); BILIRUBIN - TOTAL 0.38 mg/dL (0.2-1.3); MAGNESIUM - SERUM 2.2 mg/dL (1.8-2.4); PROTEIN - SERUM 7.8 g/dL (6.4-8.2)
[2020-02-17 17:00] LABS: BILIRUBIN NEGATIVE (NEGATIVE); GLUCOSE NEGATIVE (NEGATIVE); KETONE NEGATIVE (NEGATIVE); NITRITE NEGATIVE (NEGATIVE); SPECIFIC GRAVITY 1.015 (1.005-1.020); UROBILINOGEN NORMAL (NORMAL)
[2020-02-17 17:04] LABS: HCG URINE NEGATIVE (NEGATIVE)
--- NOTE | 2020-02-17 17:15 | NUR ---
SPOKE WITH POISON CONTROL REGARDING PATIENT - THEY HAVE ALSO SPOKEN WITH OUR ER PROVIDER FOR RECOMMENDATIONS.
[2020-02-17 17:26] LABS: CKMB 1.1 U/L (0.0-3.6); CREATINE KINASE 194 UL (21-215); TROPONIN-I < 0.017 ng/mL (0.000-0.060)
--- NOTE | 2020-02-17 17:28 | NUR ---
DR. SHEA NOTIFIED AND SITTER IN LINE OF SIGHT. NOTIFIED CHARGE NURSE AND ATTENDING IN REGARDS TO ASSESSMENT FINDINGS. RESOURCES GIVEN TO PT AND SAFETY PLAN INTIATED.
[2020-02-17 20:00] VITALS: BP 138/90
--- NOTE | 2020-02-17 20:30 | NUR ---
PT ASSISTED INTO ICU BED, MONITORS ON AND WORKING, VITALS STABLE, PT AWAKE ALERT ORIENTED. SITTER AT BEDSIDE. PT DENIES ANY COMPLAINT OF PAIN OR DISCOMFORT AT THIS TIME, SEE FLOW SHEET FOR FURTHER DETAILS. WILL CONTINUE TO OBSERVE.
--- NOTE | 2020-02-17 20:36 | NUR ---
spoke with the pt. the pt requested that we let someone know that she is in the hosptial, she asked if we call dash and vy. both numbers did not work. she did give her permission to give out password.
[2020-02-17 21:00] VITALS: BP 118/81; BP 123/80
[2020-02-17 22:00] VITALS: BP 118/81
[2020-02-17 23:00] VITALS: BP 116/93
--- NOTE | 2020-02-17 23:00 | NUR ---
PT LYING IN BED RESTING, MONITORS ON AND WORKING, VITALS STABLE. SITTER AT BEDSIDE, SEE FLOW SHEET FOR FURTHER DETAILS. WILL CONTINUE TO OBSERVE.
[2020-02-17 23:21] VITALS: BP 138/90; Ht 162.6 cm; Wt 144.5 kg
[2020-02-18] VITALS (15 sets, daily range): BP systolic 90–152; BP diastolic 50–95
--- NOTE | 2020-02-18 01:00 | NUR ---
PT LYING IN BED RESTING. MONITORS ON AND WORKING, VITALS STABLE. SITTER AT BEDSIDE, NO SIGNS/SYMPTOMS OF PAIN OR DISCOMFORT NOTED. WILL CONTINUE TO OBSERVE.
[2020-02-18 01:48] LABS: CREATINE KINASE 142 UL (21-215); TROPONIN-I < 0.017 ng/mL (0.000-0.060)
--- NOTE | 2020-02-18 03:00 | NUR ---
PT LYING IN BED RESTING MONITORS ON AND WORKING, VITALS STABLE, PT ALERT AND ORIENTED, DENIES ANY COMPLAINT OF PAIN OR DISCOMFORT. SEE FLOW SHEET FOR FURTHER DETAILS. WILL CONTINUE TO OBSERVE.
--- NOTE | 2020-02-18 07:15 | NUR ---
PT RESTING IN BED, VSS AND WNL. BED ALARM ON. NO SIGNS OF DISTRESS NOTED. CALL LIGHT WITHIN REACH. WILL CONT TO FOLLOW POC
[2020-02-18 07:43] LABS: BASOPHILS 0.5 % (0-2); EOSINOPHILS 3.2 % (0-7); HEMATOCRIT 38.4 % (36.0-48.0); IMMATURE GRANULOCYTES 0.3 % (0-5); LYMPHOCYTES 33.6 % (15-50); MCH 29.9 pg (26.0-34.0); MCHC 31.3 g/dL (31.0-37.0); MCV 95.8 fL (80.0-100.0); NEUTROPHILS 55.4 % (40-80); PLATELET COUNT 232 10x3/uL (130-400); RBC 4.01 10x6/uL (4.00-5.40); RDW 13.6 % (11.5-14.5); WBC 7.6 10x3/uL (4.8-10.8)
[2020-02-18 08:21] LABS: ALBUMIN 3.3 g/dL (3.4-5.0); ALKALINE PHOSPHATASE 80 U/L (30-120); ALT (SGPT) 38 U/L (10-68); BILIRUBIN - TOTAL 0.51 mg/dL (0.2-1.3); CALC OSMOLALITY 282 mosm/kg (275-300); CALCIUM 8.3 mg/dL (8.5-10.1); CARBON DIOXIDE 23.7 mmol/L (21.0-32.0); CHLORIDE - SERUM 109 mmol/L (98-107); CKMB 0.8 U/L (0.0-3.6); CREATINE KINASE 130 UL (21-215); CREATININE - SERUM 0.9 mg/dL (0.6-1.3); GLUCOSE 108 mg/dL (74-106); POTASSIUM - SERUM 3.9 mmol/L (3.5-5.1); PROTEIN - SERUM 6.3 g/dL (6.4-8.2); SODIUM 141 mmol/L (136-145); TROPONIN-I < 0.017 ng/mL (0.000-0.060); UREA NITROGEN 14 mg/dL (7-18); eGFR NON AFRICAN AMERICAN 72 mL/min (90-120)
--- NOTE | 2020-02-18 09:00 | NUR ---
PT RESTING IN BED, VSS AND WNL, NO SIGNS OF DISTRESS NOTED. BED ALARM ON. SITTER AT BEDSIDE, DENIES ANY NEEDS AT THIS TIME, WILL CONT TO FOLLOW POC
--- NOTE | 2020-02-18 10:26 | MORECARE ---
CASE MANAGEMENT DISCHARGE SUMMARY PATIENT: JESSY KU UNIT: [id number] ADM DATE: 02/17/20 AGE: 44 : [birth year] SEX: F ROOM/BED: D.2307 AUTHOR: RAYMOND ENCINAS PHYSICIAN: REFERRING PHYSICIAN: VANIA ROMERO MD DATE OF SERVICE: 02/18/20 Discharge Plan Patient Name: JESSY KU Facility: [facility]:[place] : 1975 Planned Disposition: Anticipated Discharge Date: Discharge Date: Expected LOS: Initial Reviewer: [email or web address] Initial Review Date: 02/17/2020 Generated: 02/18/20 11:26 am DCPIA - Discharge Planning Initial Assessment Updated by [email or web address]: Fahrana Yun on 02/18/20 10:23 am * Is the patient Alert and Oriented? Yes * How many steps to enter\exit or inside your home? 0/0 * PCP [place] * Pharmacy [facility] [address] * Preadmission Environment Homeless * ADLs Independent * Equipment None * List name and contact numbers for known caregivers / representatives who currently or will assist patient after discharge: unknown * Community resources currently utilized None * Additional services required to return to the preadmission environment? Yes * Can the patient safely return to the preadmission environment? Yes * Has this patient been hospitalized within the prior 30 days at any hospital? Yes Patient Name: JESSY KU Page [id number] at 1026 All edits/amendments must be made on the electronic document DICTATION DATE: 02/18/20 1026 GOLD LEAF GILDER: WESLY 02/18/20 1026 RPT#: [id number] DC DATE: STATUS: ADM IN [facility] [address] [place] [address] END OF REPORT
--- NOTE | 2020-02-18 11:00 | NUR ---
PT RESTING IN BED, SITTER AT BEDSIDE. NO SIGNS OF DISTRESS NOTED. BED ALARM ON. WILL CONT TO FOLLOW POC
[2020-02-18 13:43] LABS: CKMB 0.9 U/L (0.0-3.6); CREATINE KINASE 126 UL (21-215); TROPONIN-I < 0.017 ng/mL (0.000-0.060)
--- NOTE | 2020-02-18 14:00 | NUR ---
PT RESTING IN BED, VSS AND WNL. BED ALARM ON. NO SIGNS OF DISTRESS NOTED. SITTER AT BEDSIDE. WILL CONT TO FOLLOW POC
--- NOTE | 2020-02-18 14:10 | MORECARE ---
CASE MANAGEMENT DISCHARGE SUMMARY PATIENT: JESSY KU UNIT: [id number] ADM DATE: 02/17/20 AGE: 44 : [birth year] SEX: F ROOM/BED: D.2307 AUTHOR: RAYMOND ENCINAS PHYSICIAN: REFERRING PHYSICIAN: VANIA ROMERO MD DATE OF SERVICE: 02/18/20 Discharge Plan Patient Name: JESSY KU Facility: [facility]:[place] : 1975 Planned Disposition: Anticipated Discharge Date: Discharge Date: Expected LOS: Initial Reviewer: [email or web address] Initial Review Date: 02/17/2020 Generated: 02/18/20 3:09 pm DCPIA - Discharge Planning Initial Assessment Updated by [email or web address]: Farhana Yun on 02/18/20 10:23 am * Is the patient Alert and Oriented? Yes * How many steps to enter\exit or inside your home? 0/0 * PCP [place] * Pharmacy [facility] [address] * Preadmission Environment Homeless * ADLs Independent * Equipment None * List name and contact numbers for known caregivers / representatives who currently or will assist patient after discharge: unknown * Community resources currently utilized None * Additional services required to return to the preadmission environment? Yes * Can the patient safely return to the preadmission environment? Yes * Has this patient been hospitalized within the prior 30 days at any hospital? Yes External Providers External Provider: [facility] Next Contact Date: Service Request Date: Service Type: Resolution: Reviewer: Comments: Last DP export: 02/18/20 9:26 am Patient Name: JESSY KU Page [phone] at 1410 All edits/amendments must be made on the electronic document DICTATION DATE: 02/18/20 140 TRANSFORMATION COACH: WESLY 02/18/20 1409 RPT#: [id number] DC DATE: STATUS: ADM IN [facility] [address] [place] [address] END OF REPORT
--- NOTE | 2020-02-18 16:22 | CN ---
PATIENT NAME:JESSY KU MEDICAL RECORD: [id number] : 73 LOCATION:CINDY2307 ADMIT DATE: 02/17/20 ACCOUNT: [id number] CONSULTING PHYSICIAN: LIANE SHEA MD REFERRING PHYSICIAN: VANIA ROMERO MD DATE OF CONSULTATION: 02/18/2020 PSYCHIATRIC CONSULTATION IDENTIFYING DATA: The patient is 44 years old and she presents to the hospital on a voluntary basis. CHIEF COMPLAINT: Overdose. HISTORY OF PRESENT ILLNESS: The patient took 15 tablets of Remeron after having an argument with her friend. The friend is a female and they have been friends for more than 20 years. The friend has a new boyfriend and the boyfriend does not like Jessy and told her that she either had to choose Jessy or him and Jessy lost. As a result, she took this overdose somewhat impulsively. Her coping skills are obviously week. However, I think that is a lifelong pattern. She took an overdose a few weeks ago and was in [facility] and was just released on the 09 of February. After being out of the hospital only a week, she takes another overdose and ends up in the Emergency Room. She is endorsing numerous neurovegetative depressive symptoms and psychosocial stressors related to her interactions with family and friends. She denies psychotic symptoms and thoughts of harming others. She denies substance abuse and indeed her urine drug screen is negative for any illicit substances. ASSESSMENT: 1. Major depression. 2. Cluster B personality disorder. PLAN: The patient is clearly at risk based on her behavior, both yesterday and a couple of weeks ago. She does have a history of self-harm and has obviously very limited capacity to deal with stress and change. It is my recommendation that she be transferred to inpatient psychiatric care once medically stable. She is willing to do this. TRANSINT:[id number] Voice Confirmation ID: [id number] DOCUMENT ID: [id number] LIANE SHEA MD at 1622 CC: [id number] DICTATION DATE: 02/18/20 1143 ENDOSCOPY RN: 02/18/20 1433 ADM IN [place] [id number] [place] [address]
--- NOTE | 2020-02-18 18:16 | NUR ---
PT ARRIVES TO ROOM VIA WHEELCHAIR. PT IS AAO X 4. ALL POTENTIAL HAZARDS ARE REMOVED FROM ROOM. PT DENIES PRESENCE OF PAIN/N/V/DYSPNEA AT THIS TIME. BED IS IN THE LOWEST POSITION. CALL LIGHT AND BEDSIDE TABLE ARE WITHIN REACH. SIDE RAILS X 2. PT DENIES FURTHER NEEDS. WILL CONT TO MONITOR.
--- NOTE | 2020-02-18 19:58 | MORECARE ---
CASE MANAGEMENT DISCHARGE SUMMARY PATIENT: JESSY KU UNIT: [id number] ADM DATE: 02/17/20 AGE: 44 : [birth year] SEX: F ROOM/BED: D.2209 AUTHOR: RAYMOND ENCINAS PHYSICIAN: REFERRING PHYSICIAN: VANIA ROMERO MD DATE OF SERVICE: 02/18/20 Discharge Plan Patient Name: JESSY KU Facility: [facility]:[place] : 1975 Planned Disposition: Anticipated Discharge Date: Discharge Date: Expected LOS: Initial Reviewer: [email or web address] Initial Review Date: 02/17/2020 Generated: 02/18/20 8:58 pm Comments DCP- Discharge Planning Updated by [email or web address]: Meli Castano on 02/18/20 6:[address] CM received notification that patient needs inpatient psych. CM faxed records and called transfer center. Patient is willing to go to inpatient psych. CM will continue to follow and assist as needed with discharge planning / needs. DCPIA - Discharge Planning Initial Assessment Updated by [email or web address]: Farhana Yun on 02/18/20 10:23 am * Is the patient Alert and Oriented? Yes * How many steps to enter\exit or inside your home? 0/0 * PCP [place] * [facility] [address] * Preadmission Environment Homeless * ADLs Independent * Equipment None * List name and contact numbers for known caregivers / representatives who currently or will assist patient after discharge: unknown * Community resources currently utilized None * Additional services required to return to the preadmission environment? Yes * Can the patient safely return to the preadmission environment? Yes * Has this patient been hospitalized within the prior 30 days at any hospital? Yes Last DP export: 02/18/20 1:10 pm Patient Name: JESSY KU Page 61036 at 1957 All edits/amendments must be made on the electronic document DICTATION DATE: 02/18/201957 HOME ECONOMICS EXPERT: WESLY 02/18/201957 RPT#: [id number] DC DATE: STATUS: ADM IN [address] [place] [address] END OF REPORT
--- NOTE | 2020-02-18 21:59 | NUR ---
PT RESTING IN BED. ALERT AND ORIENTED. NO SIGNS OF DISTRESS. BREATHING EVEN AND UNLABORED. NO IV SITE. PT STATES NO NEEDS AT THIS TIME. SKIN CLEAN DRY AND INTACT. SAFTEY PRECAUTIONS IN PLACE. SITTER AT BEDSIDE. WILL CONTINUE PLAN OF CARE.
--- NOTE | 2020-02-18 22:33 | NUR ---
CALLED REPORT TO ESTEPHANIA MOHAN AT [facility]. WAITING ON AMBULANCE TRANSPORT.
--- NOTE | 2020-02-18 23:07 | NUR ---
I have reviewed this patient and I concur with the Shift Assessment completed by the Licensed Practical Nurse today this shift.
--- NOTE | 2020-02-19 09:31 | MORECARE ---
CASE MANAGEMENT DISCHARGE SUMMARY PATIENT: JESSY KU UNIT: [id number] ADM DATE: 02/17/20 AGE: 44 : 73 SEX: F ROOM/BED: D.2209 AUTHOR: CE,DOC PHYSICIAN: REFERRING PHYSICIAN: VANIA ROMERO MD DATE OF SERVICE: 02/19/20 Discharge Plan Patient Name: JESSY KU Facility: [facility] : 1975 Planned Disposition: Inpatient Psych Facility Anticipated Discharge Date: 02/18/20 Discharge Date: 02/18/2020 Expected LOS: 1 Initial Reviewer: [email or web address] Initial Review Date: 02/17/2020 Generated: 02/19/20 10:31 am Comments DCP- Discharge Planning Updated by [email or web address]: Alex Tran on 02/19/20 8:[address] Patient Name: JESSY KU Encounter No: [id number] : 1975 Primary Insurance: [facility] [employer] Anticipated DC Date: 02-18-2020 Planned Disposition: Inpatient Psych Facility External Planned Provider: [facility] DCP follow-up note: LATE ENTRY: CHART REVIEWD, PT ACCEPTED AND DISCHARGED TO [facility] IN [place], [place] 02-18-20. Aelx Tran, CASE MANAGEMENT DCP- Discharge Planning Updated by [email or web address]: Meli Castano on 02/18/20 6:[address] CM received notification that patient needs inpatient psych. CM faxed records and called transfer center. Patient is willing to go to inpatient psych. CM will continue to follow and assist as needed with discharge planning / needs. DCPIA - Discharge Planning Initial Assessment Updated by [email or web address]: Farhana Yun on 02/18/20 10:23 am * Is the patient Alert and Oriented? Yes * How many steps to enter\exit or inside your home? 0/0 * PCP [place] * Pharmacy [facility] [address] * Preadmission Environment Homeless * ADLs Independent * Equipment None * List name and contact numbers for known caregivers / representatives who currently or will assist patient after discharge: unknown * Community resources currently utilized None * Additional services required to return to the preadmission environment? Yes * Can the patient safely return to the preadmission environment? Yes * Has this patient been hospitalized within the prior 30 days at any hospital? Yes Coverage Notice Reviewer: [email or web address] Rand Yun Notice Issued Date-Time: 02/18/2020 5:20 Notice Type: Medicare Outpatient Observation Notice Notice Delivered To: Patient Relationship to Patient: Crusher Operator Name: Delivery Method: HAND - Hand Delivered Katya Days: Prior Verbal Notification: Recipient Understood Notice: Yes Recipient Signature: Yes Med Rec Note Co-signed by Attending: Coverage Notice Comment: JACKSON SERVED, EXPLAINED, AND SIGNED BY PATIENT. THE ORIGINAL WAS PROVIDED TO THE PATIENT AND COPY PLACED ON CHART. Last DP export: 02/18/20 6:58 pm Patient Name: JESSY KU Page 51304 at 0931 All edits/amendments must be made on the electronic document DICTATION DATE: 02/19/20930 SANITARIAN AIDE: WESLY 02/19/20930 RPT#: [id number] DC DATE:02/18/20 STATUS: DIS IN [facility] [address] [place] [address] END OF REPORT
== END 2020-02-18 23:33 | disposition short-term general hospital (02) ==
LOC: D.ER 15:59 → D.ICU 17:11 → OBSVTIME 18:05 → D.MS 02-18 18:12
PROVIDERS: Family Medicine; ADMIT Family Medicine; ATTEND Family Medicine
DX: T43.022A Poisoning by tetracyclic antidepressants, intentional self-harm, initial encounter (principal); F41.8 Other specified anxiety disorders; E03.9 Hypothyroidism, unspecified; F60.89 Other specific personality disorders